=== PATIENT | female | born 1985 | race Caucasian/White ===

== ENCOUNTER 2018-07-08 12:18 | Emergency (ER) | payer OTHER, SELFPAY ==
[2018-07-08 15:09] LABS: ALT/SGPT 49 U/L (12-78); AST/SGOT 22 U/L (15-37); Albumin 3.9 g/dL (3.4-5.0); Alkaline Phosphatase 74 U/L (45-117); BUN Blood Urea Nitrogen 10 mg/dL (7-18); Bicarbonate 29 mmol/L (21-32); Bilirubin Direct < 0.1 mg/dL (0-0.2); Bilirubin Total 0.2 mg/dL (0.2-1.0); Glucose Level 88 mg/dL (74-106); Lipase 117 U/L (73-393); Potassium 4.2 mmol/L (3.5-5.1); Protein, Total 7.5 g/dL (6.4-8.2); Sodium Level 142 mmol/L (136-145)
[2018-07-08] MEDS ORDERED: ONDANSETRON 4 MG/2 ML VIAL ONE (15:36)
[2018-07-08] MEDS ORDERED: NA CHLORIDE 0.9% 1,000 ML ONE (15:37)
--- NOTE | 2018-07-08 15:56 | RAD REPORT ---
EXAM DESCRIPTION: CT - Abdomen Pelvis W Contrast - 07/08/2018 3:43 pm CLINICAL HISTORY: Abdominal pain./upper abdominal pain. Vomiting COMPARISON: None. TECHNIQUE: Computed axial tomography of the abdomen and pelvis was obtained. 100 cc Isovue-300 is ad ministered intravenously. Oral contrast was given. All CT scans are performed using dose optimization technique as appropriate and may include automated exposure control or mA/KV adjustment according to patient size. FINDINGS: The liver, spleen, pancreas, adrenals and kidneys appear unremarkable. The appendix is normal caliber. There is no evidence of diverticulitis 2.7 centimeter left ovarian cyst without significant free fluid An area of narrowing involves the distal stomach. A tampon is present within the vagina IMPRESSION: 2.7 centimeter left ovarian cyst without significant free-fluid Area of narrowing involves the distal stomach. This may simply be secondary to incomplete distention. This also could be the site of the patient's gastric cancer which is stated on the clinical history.
[2018-07-08 16:13] LABS: Urine Bacteria 20-50 /HPF (<20)
[2018-07-08 16:14] LABS: Urine Amorphous Sediment 2+ /HPF (NONE SEEN); Urine Culture Reflex Order NOT NEEDED; Urine Mucus 2+ /HPF (NONE SEEN)
--- NOTE | 2018-07-08 17:14 | ER ---
Nurse's Notes [facility] Name: Rachna Fitzpatrick Age: 33 yrs Sex: Female : 1985 Arrival Date: 07/08/2018 Time: 12:20 Bed 17 Private MD: Diagnosis: Vomiting;Unspecified abdominal pain Presentation: 07/08 12:28 Presenting complaint: Intermittent upper abdominal pain x 2 days. Pt reports she was hb diagnosed with stomach CA 4 months ago, went on a drinking binge, quit drinking 3 days ago, then the pain returned. Transition of care: patient was not received from another setting of care. Onset of symptoms is unknown. Risk Assessment: Do you want to hurt yourself or someone else? Patient reports no desire to harm self or others. Care prior to arrival: None. 12:28 Method Of Arrival: Ambulatory 12:28 Acuity: MAXIMUS 3 hb 17:39 Initial Sepsis Screen: Does the patient meet any 2 criteria? No. Patient's initial ls4 sepsis screen is negative. Does the patient have a suspected source of infection? No. Patient's initial sepsis screen is negative. Triage Assessment: 16:57 General: Appears uncomfortable, Behavior is calm, cooperative, anxious. Pain: Complains ls4 of pain in epigastric area. GI: Abdomen is flat, Bowel sounds present X 4 quads. : Urine is clear. Musculoskeletal: Circulation, motion, and sensation intact. Capillary refill < 3 seconds. 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 - Social history:: Smoking status: Patient uses tobacco products, smokes one-half pack cigarettes per day. - Ebola Screening: : No symptoms or risks identified at this time. Screenin:55 Abuse screen: Denies threats or abuse. Denies injuries from another. Nutritional ls4 screening: No deficits noted. Tuberculosis screening: No symptoms or risk factors identified. Fall Risk None identified. Assessment: 16:58 General: Appears uncomfortable. GI: Abdomen is tender to palpation in epigastric area. ls4 GI: PT REPORTS SHE WAS DIAGNOSED WITH CANCER 5 MONTHS AGO AND. Vital Signs: 12:29 BP 112 / 80; Pulse 73; Resp 16; Temp 97.1; Pulse Ox 100% on R/A; Pain 4/10; hb 13:30 BP 114 / 72; Pulse 70; Resp 16; Pulse Ox 99% on R/A; Pain 3/10; ls4 14:00 BP 118 / 68; Pulse 78; Resp 16; Pulse Ox 99% on R/A; Pain 3/10; ls4 15:30 BP 122 / 80; Pulse 78; Resp 16; Pulse Ox 99% on R/A; Pain 3/10; ls4 17:46 BP 116 / 70; Pulse 72; Resp 16; Temp 98.2; Pulse Ox 98% on R/A; Pain 3/10; ls4 ED Course: 12:20 Patient arrived in ED. rg4 12:29 Triage completed. hb 12:29 Arm band placed on. hb 13:41 David Reyna PA is PHCP. [facility] 13:41 Oli Morley MD is Attending Physician. [facility] 13:44 Mone Degroot RN is Primary Nurse. ls4 15:00 No provider procedures requiring assistance completed. Inserted saline lock: 20 gauge ls4 in left wrist, using aseptic technique. 15:43 CT Abd/Pelvis - W/Contrast In Process Unspecified. EDMS 16:55 Patient has correct armband on for positive identification. Bed in low position. Call ls4 light in reach. Side rails up X 1. 17:12 Haseeb Khalil MD is Referral Physician. [facility] 17:39 IV discontinued, intact, bleeding controlled, No redness/swelling at site. ls4 Administered Medications: 15:33 Drug: Zofran 4 mg Route: IVP; Site: right antecubital; ls4 16:10 Follow up: Response: No adverse reaction ls4 15:34 Drug: NS 0.9% 1000 ml Route: IV; Rate: 1 bolus; Site: right antecubital; ls4 16:30 Follow up: IV Status: Completed infusion; IV Intake: 1000ml ls4 Intake: 16:30 IV: 1000ml; Total: 1000ml. ls4 Outcome: 17:13 Discharge ordered by . [facility] 17:38 Discharged to home ambulatory. ls4 17:38 Condition: stable 17:38 Discharge instructions given to patient, family, Instructed on discharge instructions, follow up and referral plans. safety practices, Demonstrated understanding of instructions, follow-up care, medications. 17:39 Patient left the ED. ls4 Signatures: Dispatcher [employer] EDDavid Negron PA PA jmm Baxter, Heather, RN RN hb Garcia, Rubi rg4 Mone Degroot RN RN ls4
--- NOTE | 2018-07-08 17:14 | EDPHYS ---
Physician Documentation [facility] Name: Rachna Fitzpatrick Age: 33 yrs Sex: Female : 1985 Arrival Date: 07/08/2018 Time: 12:20 Bed 17 Private MD: ED Physician Oli Morley HPI: 07/08 14:07 This 33 yrs old Female presents to ER via Ambulatory with complaints of jmm Abdominal Pain, Vomiting. 14:07 The patient presents with abdominal pain in the upper abdomen. Onset: The jmm symptoms/episode began/occurred gradually, 3 week(s) ago. The symptoms do not radiate. Associated signs and symptoms: Pertinent positives: nausea and vomiting. The symptoms are described as burning. This is a 33 year old female with a history of depression that presents to the ED with epigastric abdominal pain, vomiting worsening over the past 3 week. Patient states she stopped drinking during this timespan. States she was evaluated by GI in October with concerns for stomach cancer. . 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 - Social history:: Smoking status: Patient uses tobacco products, smokes one-half pack cigarettes per day. - Ebola Screening: : No symptoms or risks identified at this time. ROS: 14:07 Constitutional: Negative for fever, chills, and weight loss, Cardiovascular: Negative jmm for chest pain, palpitations, and edema, Respiratory: Negative for shortness of breath, cough, wheezing, and pleuritic chest pain. 14:07 Abdomen/GI: Positive for abdominal pain, nausea and vomiting. 14:07 All other systems are negative. Exam: 14:07 Constitutional: This is a well developed, well nourished patient who is awake, alert, jmm and in no acute distress. Head/Face: atraumatic. Eyes: EOMI, no conjunctival erythema appreciated ENT: Moist Mucus Membranes Neck: Trachea midline, Supple Chest/axilla: Normal chest wall appearance and motion. Cardiovascular: Regular rate and rhythm. No edema appreciated Respiratory: Normal respirations, no respiratory distress appreciated 14:07 Back: Normal ROM Skin: General appearance color normal MS/ Extremity: Moves all extremities, no obvious deformities appreciated, no edema noted to the lower extremities Neuro: Awake and alert, normal gait Psych: Behavior is normal, Mood is normal, Patient is cooperative and pleasant 14:07 Abdomen/GI: Inspection: abdomen appears normal, Bowel sounds: normal, Palpation: soft, mild abdominal tenderness, in the epigastric area. Vital Signs: 12:29 BP 112 / 80; Pulse 73; Resp 16; Temp 97.1; Pulse Ox 100% on R/A; Pain 4/10; hb 13:30 BP 114 / 72; Pulse 70; Resp 16; Pulse Ox 99% on R/A; Pain 3/10; ls4 14:00 BP 118 / 68; Pulse 78; Resp 16; Pulse Ox 99% on R/A; Pain 3/10; ls4 15:30 BP 122 / 80; Pulse 78; Resp 16; Pulse Ox 99% on R/A; Pain 3/10; ls4 17:46 BP 116 / 70; Pulse 72; Resp 16; Temp 98.2; Pulse Ox 98% on R/A; Pain 3/10; ls4 MDM: 13:58 Patient medically screened. [facility] 17:11 Data reviewed: vital signs, nurses notes, lab test result(s), radiologic studies, CT [facility] scan. Counseling: I had a detailed discussion with the patient and/or guardian regarding: the historical points, exam findings, and any diagnostic results supporting the discharge/admit diagnosis, lab results, radiology results, the need for outpatient follow up, to return to the emergency department if symptoms worsen or persist or if there are any questions or concerns that arise at home. ED course: Patient tolerates PO in the ED. Patient is alert and non toxic in appearance in the ED. Patient is given f/u info for GI and is otherwise given strict return precautions. Patient understood and agrees with the plan of care. . 07/08 12:40 Order name: Urine Culture [facility] 07/08 12:40 Order name: Urine Microscopic Only; Complete Time: 16:44 [facility] 07/08 14:01 Order name: Urine Dipstick--Ancillary (enter results) eb 07/08 14:03 Order name: Basic Metabolic Panel; Complete Time: 15:11 [facility] 07/08 14:03 Order name: CBC with Diff [facility] 07/08 14:03 Order name: Creatinine for Radiology; Complete Time: 15:11 [facility] 07/08 12:40 Order name: Urine Test (obtain specimen); Complete Time: 15:13 [facility] 07/08 12:40 Order name: Urine Dipstick-Ancillary (obtain specimen); Complete Time: 15:13 [facility] 07/08 14:03 Order name: Hepatic Function; Complete Time: 15:11 [facility] 07/08 14:03 Order name: Lipase; Complete Time: 15:11 [facility] 07/08 14:03 Order name: IV Saline Lock; Complete Time: 15:13 [facility] 07/08 14:04 Order name: CT Abd/Pelvis - W/Contrast; Complete Time: 16:06 [facility] 07/08 14:03 Order name: Labs collected and sent; Complete Time: 15:13 [facility] 07/08 16:11 Order name: PO challenge; Complete Time: 19:59 jm Administered Medications: 15:33 Drug: Zofran 4 mg Route: IVP; Site: right antecubital; ls4 16:10 Follow up: Response: No adverse reaction ls4 15:34 Drug: NS 0.9% 1000 ml Route: IV; Rate: 1 bolus; Site: right antecubital; ls4 16:30 Follow up: IV Status: Completed infusion; IV Intake: 1000ml ls4 Disposition: 07/08/18 17:13 Discharged to Home. Impression: Vomiting, Unspecified abdominal pain. - Condition is Stable. - Discharge Instructions: Abdominal Pain, Adult, Nausea and Vomiting, Adult. - Prescriptions for Zofran ODT 4 mg Oral tablet,disintegrating - place 1 tablet by TRANSLINGUAL route every 4-6 hours; 20 tablet. - Medication Reconciliation Form, Thank You Letter, Antibiotic Education, Prescription Opioid Use form. - Follow up: Haseeb Khalil MD; When: 2 - 3 days; Reason: Recheck today's complaints, Continuance of care, Re-evaluation by your physician. Addendum: 07/15/2018 09:22 Co-signature as Attending Physician, lOi Morley MD I agree with the assessment and k dr plan of care. Signatures: Dispatcher [employer] EDNJ Oli Morley MD MD kdr Therrien, Shelly, FISHING ROD TRIMMER-C FISHING ROD TRIMMER-Csnw David Reyna PA PA jmm Baxter, Heather, RN RN Mone Degroot, RN RN ls4 Corrections: (The following items were deleted from the chart) 07/08 17:39 17:13 07/08/2018 17:13 Discharged to Home. Impression: Vomiting; Unspecified abdominal ls4 pain. Condition is Stable. Forms are Medication Reconciliation Form, Thank You Letter, Antibiotic Education, Prescription Opioid Use. Follow up: Haseeb Khalil; When: 2 - 3 days; Reason: Recheck today's complaints, Continuance of care, Re-evaluation by your physician. [email or web address]
[2018-07-08 18:56] LABS: Urine Blood 1+ (NEG); Urine Glucose NEGATIVE (NEG); Urine Protein TRACE (NEG); Urine Specific Gravity 1.025 (1.005-1.030)
== END 2018-07-08 17:39 | disposition home or self-care (01) ==
LOC: ER 12:18
DX: R10.13 Epigastric pain (principal); R11.2 Nausea with vomiting, unspecified; N83.202 Unspecified ovarian cyst, left side; Z85.028 Personal history of other malignant neoplasm of stomach; F32.9 Major depressive disorder, single episode, unspecified
CPT/HCPCS: 36415; 74177; 80048; 80076; 81003; 81015; 83690; 85025; 87086; 87088; J2405; J7030; Q9967